=== PATIENT | male | born 1950 ===

== ENCOUNTER → 2018-04-21 | Outpatient (CLI) | payer MEDICARE, BC ==
[2018-04-22 14:06] LABS: Stool Occult Bld Immuno 1 Negative (NEGATIVE)
== END | disposition home or self-care (01) ==
LOC: LAB 10:47 → LAB SHORT 10:47 → LAB FUT 03-01 10:20
PROVIDERS: Nurse Practitioner
DX: Z12.11 Encounter for screening for malignant neoplasm of colon (principal)
CPT/HCPCS: G0328

== ENCOUNTER 2019-05-31 07:06 | Day surgery (SDC) | payer MEDICARE, BC ==
[~2019-05-31] VITALS: Ht 175.3 cm; Wt 85.3 kg
[~2019-05-31 07:06] MED LIST: Aspir 8181 MG; Dyazide 37.5-21 EACH; Lipitor20 MG; Prinivil10 MG; Zantac150 MG
--- NOTE | 2019-05-31 08:30 | NUR ---
05/31/19 0830 Elise Rangel DISCHARGE INSTRUCTIONS REVIEWED WITH PT. PT RESTING COMFORTANLY IN BED WITH CALL LIGHT WITHIN REACH.
--- NOTE | 2019-05-31 09:56 | NUR ---
05/31/19 0956 Michael Grewal 1MG/ML EPI ADDED INTO FIRST 3 IRRIGATION BAGS
--- NOTE | 2019-05-31 11:36 | NUR ---
05/31/19 1136 Mable Nova PT IS IN THE RECLINER AT THIS TIME, ACCOMPANIED BY HIS . VSS. PT IS TOLERATING PO FLUIDS AND SNACKS WELL. PT DENIED PAIN AND NAUSEA. WARM BLANKETS PROVIDED. CALL LIGHT IN REACH.
== END 2019-05-31 12:17 | disposition home or self-care (01) ==
LOC: ORSCSDS 07:06
PROVIDERS: Orthopaedic Surgery
PROC: 0RBJ4ZZ Excision of Right Shoulder Joint, Percutaneous Endoscopic Approach (ICD-10-PCS; principal; 2019-05-31 08:45)
PROC: 0RNJ4ZZ Release Right Shoulder Joint, Percutaneous Endoscopic Approach (ICD-10-PCS; principal; 2019-05-31 08:45)
PROC: 0LQ14ZZ Repair Right Shoulder Tendon, Percutaneous Endoscopic Approach (ICD-10-PCS; principal; 2019-05-31 08:45)
DX: M75.121 Complete rotator cuff tear or rupture of right shoulder, not specified as traumatic (principal); M75.21 Bicipital tendinitis, right shoulder; M75.51 Bursitis of right shoulder; M75.41 Impingement syndrome of right shoulder; I10 Essential (primary) hypertension; K21.9 Gastro-esophageal reflux disease without esophagitis; E78.5 Hyperlipidemia, unspecified; Z79.82 Long term (current) use of aspirin; Z79.899 Other long term (current) drug therapy
CPT/HCPCS: C1713; J0171; J0690; J1100; J1885; J2001; J2250; J2370; J2405; J2704; J3010; J7120

== ENCOUNTER 2020-08-29 10:42 | Day surgery (SDC) | payer MEDICARE, BC ==
[~2020-08-29] VITALS: Ht 172.7 cm; Wt 80.6 kg
[~2020-08-29 10:42] MED LIST changes: -Aspir 8181 MG; +Aspir 8181 MG PO; -Dyazide 37.5-21 EACH; +Dyazide 37.5-21 EACH PO; -Lipitor20 MG; +Lipitor20 MG PO; -Prinivil10 MG; +Prinivil10 MG PO
--- NOTE | 2020-08-29 11:29 | NUR ---
Ambulatory in Day Surgery History, Chart, Medications and Allergies reviewed before start of procedure. Lungs clear T/O to Auscultation. Patient confirms NPO status and agrees with scheduled surgery. Pre-Op teaching done. Pt verbalizes understanding. Patient States Post-Procedure ride home has been arranged.
--- NOTE | 2020-08-29 15:30 | NUR ---
PT ARRIVED TO UNIT ON OWN BED, A/O X 4, PLEASANT/COOPERATIVE, DENIES PAIN, DENIES N/V, IS ABLE TO MOVE SOMMER LEGS, SENSATION TO L4-5. GOOD CAPILLARY REFILL TO TOES. BULKY GAUZE/VASYL DRESSING C/D/I, NO SHADOWING. PT ORIENTED TO ROOM/CALL LIGHT. CRYO/TEDS/PAS IN PLACE. POST OP VS COMMENCED AND STABLE.
--- NOTE | 2020-08-30 04:02 | NUR ---
SHIFT SUMMARY POD1 FOR LEFT TKA WITH DR. HERBERT. VSS. AFEBRILE. PT REPORTS MINIMAL PAIN. PAIN MANAGED WITH TORADOL AND TYLENOL ONLY. AMBULATE X 2 T/O SHIFT. TOLERATING IT WELL WITH 1 MINIMAL SBA. VOIDING WITHOUT DIFFICULTY. PT DENIES PASSING FLATUS. 2 ABX ADMINISTERED, HAS AN IV ON R FOREARM, SALINE LOCKED. TOLERATING PO INTAKE DENIE NAUSEA AND VOMITING. LEFT KNEE WITH VASYL WRAPPED, CDI AND POLAR PACK IN PLACED. SLEPT MOST OF THE NIGHT. BED IN LOW POSITION. CALL LIGHT WITHIN REACH.
[2020-08-30 04:12] LABS: BASOPHILS ABSOLUTE AUTO 0.02 K/mm3 (0.00-0.23); BASOPHILS PERCENT AUTO 0 % (0-2); EOSINOPHILS ABSOLUTE AUTO 0.01 K/mm3 (0.00-0.68); EOSINOPHILS PERCENT AUTO 0 % (0-6); Hematocrit 32.1 % (37.0-53.0); Hemoglobin 10.7 g/dL (13.5-17.5); IMMATURE GRAN ABSOLUTE AUTO 0.05 K/mm3 (0.00-0.10); IMMATURE GRAN PERCENT AUTO 0 % (0-1); LYMPHOCYTES ABSOLUTE AUTO 1.07 K/mm3 (0.84-5.20); LYMPHOCYTES PERCENT AUTO 9 % (21-46); MONOCYTES ABSOLUTE AUTO 0.86 K/mm3 (0.16-1.47); MONOCYTES PERCENT AUTO 7 % (4-13); Mean Corpuscular HGB 29.6 pg (26.0-34.0); Mean Corpuscular HGB Conc 33.3 g/dL (31.5-36.5); Mean Corpuscular Volume 89 fL (80-100); Mean Platelet Volume 9.2 fL (9.1-12.4); NEUTROPHILS ABSOLUTE AUTO 9.99 K/mm3 (1.96-9.15); NEUTROPHILS PERCENT AUTO 83 % (41-73); Platelet Count 196 K/mm3 (150-400); RDW Coefficient Variation 13.1 % (11.7-14.2); RDW Standard Deviation 43.1 fL (35.1-46.3); Red Blood Cell Count 3.61 M/mm3 (4.30-5.90)
[2020-08-30 04:32] LABS: Anion Gap 7 mmol/L (6-16); Blood Urea Nitrogen 16 mg/dL (8-24); Bun/Creatinine Ratio 17.4 (12.0-20.0); CO2, Blood 28 mmol/L (21-32); Calcium, Blood 8.5 mg/dL (8.5-10.1); Chloride, Blood 103 mmol/L (98-108); Creatinine, Blood 0.92 mg/dL (0.60-1.20); Glomerular Filtration Rate >60 (60-); Glucose, Blood 115 mg/dL (70-99); Magnesium, Blood 2.1 mg/dL (1.6-2.4); Potassium, Blood 3.9 mmol/L (3.5-5.5); Sodium, Blood 138 mmol/L (136-145)
[2020-08-30] MEDS ORDERED: ROXICODONE5 MG PO (10:20)
[2020-08-30] MEDS ORDERED: PROM25 PO (10:21)
--- NOTE | 2020-08-30 11:27 | NUR ---
DISCHARGE SUMMARY PT ALERT AND ORIENTED. SBA WITH WALKER TO BATHROOM AND AMBULATING. PAIN CONTROLLED WITH RX. TOLERATING REG DIET AND VOIDING WELL. DR HERBERT CHANGED THE DRESSING TO LEFT KNEE TO AQUACEL. CLEARED FOR DISCHARGE BY PHYSICAL THERAPY. DISCHARGE EDUCATION GIVEN ON WOUNC CARE, ACTIVITY, PAIN CONTROL, RXS, AND FOLLOW UP WITH ORTHO AND PHYSICAL THERAPY. IV REMOVED. PT LEFT UNIT VIA WHEELCHAIR WITH SPOUSE FOR HOME AT 1115.
== END 2020-08-30 11:22 | disposition home or self-care (01) ==
LOC: ORSCMMR 10:42 → ORD 14:00 → ORSCMMR 14:00 → SURS 15:19 → ORSCMMR 08-30 11:22 → SURS 08-30 11:22
PROVIDERS: Orthopaedic Surgery
PROC: 8E0YXBZ Computer Assisted Procedure of Lower Extremity (ICD-10-PCS; principal; 2020-08-29 14:00)
PROC: 0SRD0J9 Replacement of Left Knee Joint with Synthetic Substitute, Cemented, Open Approach (ICD-10-PCS; principal; 2020-08-29 14:00)
DX: M17.12 Unilateral primary osteoarthritis, left knee (principal); I10 Essential (primary) hypertension; E78.5 Hyperlipidemia, unspecified; E88.81 Metabolic syndrome and other insulin resistance; Z79.82 Long term (current) use of aspirin; Z79.899 Other long term (current) drug therapy
CPT/HCPCS: 36415; 73560-LT; 80048; 83735; 85025; 88300; 97110; 97116; 97161; 97530; A9270; C1713; C1776; J0171; J0690; J0735; J1100; J1885; J2250; J2370; J2405; J2704; J2795; J3010; J7050; J7120

== ENCOUNTER → 2025-03-13 | Outpatient (CLI) | payer MEDICARE, BC ==
[~2025-03-13] MED LIST changes: +PROM25 PO; +ROXICODONE5 MG PO
== END ==
LOC: LAB 10:38 → LAB SHORT 10:38
DX: M25.561 Pain in right knee (principal)
CPT/HCPCS: 84550